=== PATIENT | male | born 1955 | race Caucasian/White ===

== ENCOUNTER 2017-11-08 08:01 | Day surgery (SDC) | payer OTHER ==
[2017-11-08] MEDS ORDERED: PROPOFOL 40 ML (09:12)
== END 2017-11-08 11:11 | disposition home or self-care (01) ==
LOC: GIL 08:01
DX: K92.1 Melena (principal); K52.9 Noninfective gastroenteritis and colitis, unspecified; K57.90 Diverticulosis of intestine, part unspecified, without perforation or abscess without bleeding; K64.8 Other hemorrhoids; E03.9 Hypothyroidism, unspecified; I25.10 Atherosclerotic heart disease of native coronary artery without angina pectoris; E11.9 Type 2 diabetes mellitus without complications; I10 Essential (primary) hypertension; E78.5 Hyperlipidemia, unspecified
CPT/HCPCS: 45380; 82962; 88305